=== PATIENT | male | born 1970 | race African-American/Black ===

== ENCOUNTER 2023-08-30 18:54 | Emergency (ER) | payer MEDICAID ==
[~2023-08-30] VITALS: Ht 185.4 cm; Wt 124.7 kg
[2023-08-30 19:01] VITALS: BP 172/110; PULSE 109; RESP 20; TEMP 98.2; O2SAT 98
[2023-08-30] MEDS: IBUPROFEN 400 MG TAB PO ONE (20:00)
[2023-08-30] MEDS: ACETAMINOPHEN EXTRA STRENGTH 500 MG TAB PO ONE (20:00)
[2023-08-30 20:02] VITALS: BP 155/92; PULSE 84; RESP 16; TEMP 98.1; O2SAT 98
== END 2023-08-30 20:00 ==
LOC: MED 18:54
DX: I10 Essential (primary) hypertension (principal); R51.9 Headache, unspecified; E11.9 Type 2 diabetes mellitus without complications; I48.92 Unspecified atrial flutter
CPT/HCPCS: 99283